=== PATIENT | female | born 1980 | race African-American/Black ===

== ENCOUNTER 2022-09-17 10:47 | Emergency (ER) | payer BC, SELFPAY ==
--- NOTE | ~2022-09-17 | US_ITS ---
EXAMINATION: US pelvic complete w TV DATE: 09/17/2022 12:56 INDICATION: Abnormal vaginal bleeding TECHNIQUE: Multiple transabdominal and endovaginal sonographic images of the pelvis were obtained. COMPARISON: None. FINDINGS: The uterus measures 9.1 x 3.8 x 4.1 cm. There is a 2.8 x 2.3 x 2.0 cm mass of the uterus wi th the appearance of an intramural fibroid. The endometrial complex measures 5 mm. The right ovary is not visualized however no right adnexal abnormality is seen. The left ovary measures 7.5 x 5.8 x 5.9 cm and contains a 6.6 cm cyst. There is normal vascular flow in the left ovary. There is no free flu id in the pelvis. IMPRESSION: 1. Uterine fibroid. 2. 6 cm cyst of the left ovary. Follow-up ultrasound in 8-12 weeks is recommended. Reviewed, dictated and finalized at location A. SCRAPER IMPRESSION: 1. Uterine fibroid. 2. 6 cm cyst of the left ovary. Follow-up ultrasound in 8-12 weeks is recommend ed.
[2022-09-17 11:16] VITALS: BP 117/68; PULSE 74; RESP 18; TEMP 36.6; O2SAT 99
[2022-09-17 11:27] VITALS: BP 113/85; PULSE 79; RESP 16; O2SAT 97
[2022-09-17 12:00] VITALS: BP 127/69; PULSE 56
[2022-09-17 12:01] VITALS: BP 117/69; BP 119/75; PULSE 59; PULSE 73
[2022-09-17 12:03] LABS: Basophils Absolute Auto 0.1 K/mm3 (0.0-0.1); Eosinophils Absolute Auto 0.3 K/mm3 (0-0.3); Eosinophils Percent Auto 4.5 % (0-4.4); Hematocrit 37.4 % (37.0-47.0); Hemoglobin 12.2 g/dL (12.0-15.0); Immature Granulocyte Absolute 0.02 K/mm3 (0.00-0.031); Immature Granulocyte Percent A 0.3 % (0-0.5); Lymphocytes Absolute Auto 2.36 K/mm3 (0.9-3.2); Lymphocytes Percent Auto 38.2 % (18.3-44.2); Mean Corpuscular HGB Conc 32.6 g/dl (32-36); Mean Corpuscular Hemoglobin 29.5 pg (26-34); Mean Corpuscular Volume 90.6 fl (80-100); Mean Platelet Volume 11.1 fl (7.4-10.4); Monocytes Absolute Auto 0.5 K/mm3 (0.1-0.6); Monocytes Percent Auto 7.5 % (2.6-8.5); Neutrophils Percent Auto 48.5 % (45.5-73.1); Platelet Count Result 285 k/mm3 (150-375); Red Blood Count 4.13 M/mm3 (4.2-5.4); Red Cell Distribution Width 13.5 % (11.5-14.5); White Blood Count 6.2 K/mm3 (4.5-10.0)
--- NOTE | 2022-09-17 13:18 | ED.FEMALEGU ---
HPI - Female Genitourinary General Chief complaint: Vaginal Bleeding Stated complaint: vaginal bleeding Time Seen by Provider: 09/17/22 11:24 Source: patient and RN notes reviewed Mode of arrival: ambulatory Limitations: no limitations History of Present Illness HPI Narrative: This is a 41 year old female with history of uterine fibroids who presents for evaluation of heavy vaginal bleeding. Patient states she has been on her menstrual cycle for 12 days and it became heavy on Sunday. Patient states today she is passing large clots and she is changing her pads every 2 hours. She denies dizziness, chest pain, sob, or weakness. She reports history of menstrual cycles that last 7-10 days but it has never been this heavy. She reports her last menstrual cycle was August 11. She had procedure in December to remove uterine fibroids and cyst. She states her packaging materials inspector is located in [place]. Related Data Allergies Allergy/AdvReac Type Severity Reaction Status Date / Time ibuprofen AdvReac Nausea and Verified 09/17/22 11:24 Vomiting Review of Systems Constitutional: Constitutional: Denies weakness Cardiovascular: Cardiovascular: Denies syncope, Denies rapid heart rate, Denies irregular heart rhythm, Denies leg edema and Denies dyspnea Respiratory: Respiratory: Denies chest congestion, Denies hemoptysis, Denies excessive phlegm production and Denies dyspnea Gastrointestinal: Gastrointestinal: Denies abdominal pain, Denies hematochezia, Denies diarrhea and Denies vomiting Genitourinary: Genitourinary: Reports abnormal vaginal bleeding, Denies hematuria and Denies dysuria Musculoskeletal: Musculoskeletal: Denies joint swelling, Denies loss of height and Denies muscle weakness Neurologic: Denies syncope, Denies focal weakness and Denies weakness PMFSH Past Medical History Medical History (Updated 09/17/22 @ 13:45 by Sara Nix MD) Uterine fibroid Social History Social History (Updated 09/17/22 @ 13:45 by Sara Nix MD) Smoking status: Never smoker Exam Const: General: no acute distress and alert Nutritional Appearance: well nourished and obese Orientation/consciousness: patient oriented x3 HENMT: Head: normal to inspection Eyes: EOM: EOMs intact bilaterally Chest: Chest palpation & inspection: normal inspection of the chest Resp: Effort & Inspection: normal respiratory effort Auscultation: clear to auscultation bilaterally Cardio: Rate: regular rate Rhythm: regular rhythm Heart sounds: no murmurs GI: GI Palp: Yes Soft to palpation, No Tenderness to palpation present (GI) and No Guarding due to palpation present (GI) Auscultation: normal bowel sounds : Speculum Exam - Vagina: vaginal bleeding Speculum Exam - Cervix: Cervical os closed Bimanual Exam- Adnexa, other: no masses Back/Spine/Pelvis: Back: no CVA tenderness Skin: General skin exam: normal color Rashes: no rashes Neuro: General: patient oriented x3, moves all extremities and CN's II-XI intact bilaterally Speech: normal speech Gait exam (Neuro): Normal gait present Psych: Appearance: grossly normal Mental Status: mental status grossly normal Affect: normal affect Attitude: cooperative Course Reevaluation(s) Reevaluation #1: PAtient states her bleeding has lessened. She will follow up with packaging materials inspector regarding her options. Date: 09/17/22 Time: 13:29 Vital Signs Vital signs: Vital Signs Temperature 97.8 F 09/17/22 11:16 Pulse Rate 74 09/17/22 11:16 Respiratory Rate 18 09/17/22 11:16 Blood Pressure 117/68 09/17/22 11:16 Pulse Oximetry 99 09/17/22 11:16 Oxygen Delivery Room Air 09/17/22 11:16 Temperature 97.8 F 09/17/22 11:16 Pulse Rate 73 09/17/22 12:01 Respiratory Rate 16 09/17/22 11:27 Blood Pressure 117/69 09/17/22 12:01 Pulse Oximetry 97 09/17/22 11:27 Oxygen Delivery Room Air 09/17/22 11:16 MDM - Female Genitourinary MDM Narrative Medical decision m
== END 2022-09-17 14:15 | disposition home or self-care (01) ==
PROVIDERS: Emergency Provider General Practice; PCP Nurse Practitioner Family
DX: N92.0 Excessive and frequent menstruation with regular cycle (principal); N83.202 Unspecified ovarian cyst, left side; D25.9 Leiomyoma of uterus, unspecified
CPT/HCPCS: 36415; 76830; 76856; 81025; 85025; 86850; 86900; 86901; 99284

== ENCOUNTER 2023-10-23 15:35 | Emergency (ER) | payer BC, SELFPAY ==
--- NOTE | ~2023-10-23 | CT_ITS ---
EXAMINATION: CT abdomen pelvis w con DATE: 10/23/2023 16:59 INDICATION: Low abdominal pain. Hematuria. TECHNIQUE: Computed tomography (CT) of the abdomen and pelvis was performed with 100 mL Omnipaque 350 intravenous contrast. Automated exposure control and iterative reconstruction technique were employe d. The dose-length product was 830.26 mGy-cm. COMPARISON: Ultrasound pelvis 09/17/2022 FINDINGS: The visualized portions of the lung bases are clear without pneumonia or pleural effusion. The heart size is normal. No pericardial effusion. The liver, gallbladder, spleen, pancreas, adrenal glands, and left kidney are normal. There are cysts in right kidney measuring up to 6 mm. There are n o dilated loops of bowel. The appendix is normal. There is a 3.2 cm cyst in left ovary. There is a 2. 7 cm uterine fibroid. There are no pathologically enlarged lymph nodes. There is no free intraperiton eal fluid. There is mild lumbar spondylosis. IMPRESSION: 1. 3.2 cm cyst in left ovary, likely a follicular cyst. 2. 2.7 cm uterine fibroid. Reviewed, dictated and finalized at location A.
--- NOTE | ~2023-10-23 | US_ITS ---
EXAMINATION: US pelvic complete w TV DATE: 10/23/2023 17:37 INDICATION: suprapubic pain, vag bleeding, hx cysts TECHNIQUE: Multiple transabdominal and endovaginal sonographic images of the pelvis were obtained. COMPARISON: CT abdomen and pelvis, same date. FINDINGS: Uterus: 7.6 x 4.8 x 6.3 cm. 2.5 cm heterogeneous myometrial lesion in the anterior uterine fundus. En dometrial complex measures 20 mm. Right Ovary: Obscured by bowel gas. Left Ovary: Obscured by bowel gas. There is no free fluid in the pelvis. IMPRESSION: 2.5 cm intramural fibroid. Endometrial thickening, consider gynecology referral for possible endometrial sampling and/or sonohys terography. Bilateral ovaries obscured by bowel gas. Reviewed, dictated and finalized at location K. IMPRESSION: 2.5 cm intramural fibroid. Endometrial thickening, consider gynecology referral for possible endometrial s ampling and/or sonohysterography. Bilateral ovaries obscured by bowel gas.
[2023-10-23 15:31] VITALS: BP 100/81; PULSE 79; RESP 29; TEMP 36.6; O2SAT 100
[2023-10-23 16:05] LABS: Basophils Absolute Auto 0.1 K/mm3 (0.0-0.1); Basophils Percent Auto 1.1 % (0.2-1.2); Eosinophils Absolute Auto 0.2 K/mm3 (0-0.3); Eosinophils Percent Auto 3.1 % (0-4.4); Hemoglobin 15.5 g/dL (12.0-15.0); Immature Granulocyte Absolute 0.09 K/mm3 (0.00-0.031); Immature Granulocyte Percent A 1.4 % (0-0.5); Lymphocytes Absolute Auto 3.62 K/mm3 (0.9-3.2); Lymphocytes Percent Auto 55.4 % (18.3-44.2); Mean Corpuscular HGB Conc 32.3 g/dl (32-36); Mean Corpuscular Hemoglobin 28.8 pg (26-34); Mean Corpuscular Volume 89.1 fl (80-100); Mean Platelet Volume 10.8 fl (7.4-10.4); Monocytes Absolute Auto 0.6 K/mm3 (0.1-0.6); Monocytes Percent Auto 8.4 % (2.6-8.5); Neutrophils Percent Auto 30.6 % (45.5-73.1); Platelet Count Result 396 k/mm3 (150-375); Red Blood Count 5.39 M/mm3 (4.2-5.4); Red Cell Distribution Width 13.2 % (11.5-14.5); White Blood Count 6.5 K/mm3 (4.5-10.0)
[2023-10-23 16:15] VITALS: PULSE 65; RESP 15; O2SAT 100
[2023-10-23 16:16] LABS: Alanine Aminotransferase 20 U/L (6-35); Albumin Level 4.4 g/dL (3.5-5.1); Alkaline Phosphatase 65 U/L (38-126); Anion Gap 7 mmol/L (8-16); Aspartate Amino Transferase 29 U/L (14-36); Bilirubin,Total 0.8 mg/dL (0.2-1.3); Blood Urea Nitrogen 10 mg/dL (7-17); Calcium 9.7 mg/dL (8.4-10.2); Carbon Dioxide 23 mmol/L (22-30); Chloride 107 mmol/L (98-107); Estimated CRCL calculation 95 ml/min; Estimated Glomerular Filt Rate > 60; Glucose 101 mg/dL (65-110); Lipase 53 U/L (23-300); Potassium 4.2 mmol/L (3.4-5.0); Sodium 137 mmol/L (137-145)
[2023-10-23 16:26] LABS: Bacteria Urine None Seen /hpf; Non Pathogenic Casts 0-2; RBC Urine >100 /hpf (0-2); Squamous Epithelial Cell Urine None Seen /hpf (Few); WBC Urine 0-5 /hpf (0-3)
[2023-10-23 16:28] LABS: Add Urine Microscopic? YES; Appearance Urine Cloudy (Clear); Bilirubin Urine Negative (Negative); Blood Urine 3+ (Negative); Color Urine Orange (Yellow); Glucose Urine UA Negative (Negative); Ketones Urine Negative (Negative); Leukocyte Esterase Ur Trace LEU/UL (Negative); Nitrate Urine Negative (Negative); Protein Urine Trace mg/dL (Negative); Specific Grav Ur 1.017 (1.001-1.035)
[2023-10-23 16:30] VITALS: PULSE 74; RESP 23; O2SAT 100
[2023-10-23] MEDS: ONDANSETRON INJ 4 MG/2 ML VIAL IV PUSH (16:31)
[2023-10-23] MEDS: SODIUM CHLORIDE 0.9% IV 1,000 ML 999 ML IV CONT (16:31)
[2023-10-23] MEDS: MORPHINE SULFATE (*CRX) 4 MG/ML INJ IV PUSH (16:31)
--- NOTE | 2023-10-23 16:31 | ED.ABDPAIN ---
HPI - Abdominal Pain General Chief Complaint: Abdominal Pain Stated Complaint: abd pain Time Seen by Provider: 10/23/23 15:46 Source: patient Mode of arrival: EMS Limitations: no limitations History of Present Illness HPI narrative: Patient is a 42-year-old female who presents the ED via EMS with report of suprapubic abdominal pain. Patient reports pain began approximately 1 hour ago. Has been intermittent since then. Denies specific aggravating or alleviating factors. Has not tried anything for the pain. Patient reports having history of similar pain in the past related to uterine fibroids and ovarian cysts, which she has had previous surgery for. She sees OBGYN at [facility] as well as a specialist in [place], [place]. Patient admits to intermittent vaginal spotting over the last 3 weeks, states she is now currently on her menstrual cycle. She denies nausea, vomiting, diarrhea, constipation, rectal bleeding, melena, hematuria, dysuria, fevers. Related Data Allergies Allergy/AdvReac Type Severity Reaction Status Date / Time ibuprofen AdvReac Nausea and Verified 10/23/23 15:46 Vomiting Review of Systems Review of Systems: CONSTITUTIONAL: Denies fever, chills, or sweats. GASTROINTESTINAL: See HPI. GENITOURINARY: See HPI. All systems reviewed & are unremarkable except as noted in HPI and below PMFSH Past Medical History Medical History Uterine fibroid Social History Social History Smoking status: Never smoker Exam Narrative: GENERAL: Mildly uncomfortable appearing, obese with BMI of 30.5, non-toxic, in no acute distress. HEAD: Normocephalic, atraumatic. RESPIRATORY: Airway patent, respirations nonlabored. Clear to auscultation bilaterally, no rales, rhonchi, wheezing. CARDIOVASCULAR: Regular rate and rhythm without murmurs, rubs, or gallops. ABDOMINAL: Soft, diffuse lower abdominal tenderness, worst throughout suprapubic region, nondistended. Normoactive BS. MUSCULOSKELETAL: Moves all extremities. No gross deformities. SKIN: Warm, dry, normal color. NEURO: A&O X3. Speech clear. PSYCHIATRIC: Mildly anxious. Normal interaction. Course Vital Signs Vital signs: Vital Signs Temperature 97.8 F 10/23/23 15:31 Pulse Rate 79 10/23/23 15:31 Respiratory Rate 29 H 10/23/23 15:31 Blood Pressure 100/81 10/23/23 15:31 Pulse Oximetry 100 10/23/23 15:31 Oxygen Delivery Room Air 10/23/23 15:31 Temperature 97.8 F 10/23/23 15:31 Pulse Rate 74 10/23/23 16:30 Respiratory Rate 23 H 10/23/23 16:30 Blood Pressure 100/81 10/23/23 15:31 Pulse Oximetry 100 10/23/23 16:30 Oxygen Delivery Room Air 10/23/23 15:31 MDM - Abdominal Pain MDM Narrative Medical decision making narrative: Patient presented to ED with report of suprapubic abdominal pain, onset 1 hour prior to arrival, also reporting intermittent vaginal spotting over the last 3 weeks. Vitals are stable upon arrival. Patient afebrile. Mildly uncomfortable appearing, but no acute distress. CBC without leukocytosis. Stable H&H. Possible hemoconcentration. CMP unremarkable. Urinalysis with lots of blood, no evidence for infection. Patient does admit to ongoing vaginal bleeding today which likely explains the blood. Ultrasound obtained and showing evidence of uterine fibroid, endometrial thickening, bilateral ovaries were obscured by bowel gas. CT abdomen pelvis obtained and showing 3.2 cm left-sided ovarian cyst, again showing uterine fibroid. No other acute intra-abdominal abnormalities. Discussed lab and imaging findings with patient and family at bedside. Patient is feeling much better with supportive therapy. Her pain is resolved after 1 dose of morphine. I discussed that while they were not able to visualize her ovaries on the ultrasound and thus confirm blood flow, I have
--- NOTE | 2023-10-23 17:26 | PC.NURSE ---
pt down to scan @1645 and back @1720
[2023-10-23 18:34] VITALS: BP 126/92; PULSE 63; RESP 17; TEMP 36.8; O2SAT 100
== END 2023-10-23 18:35 | disposition home or self-care (01) ==
PROVIDERS: Emergency Medicine; Emergency Provider Physician Assistant; PCP Nurse Practitioner Family
DX: N83.202 Unspecified ovarian cyst, left side (principal); D25.1 Intramural leiomyoma of uterus; R10.30 Lower abdominal pain, unspecified; R93.89 Abnormal findings on diagnostic imaging of other specified body structures
CPT/HCPCS: 36415; 74177; 76830; 76856; 80053; 81025; 83690; 85025; 96361; 96374; 96375; 99284; J2270; J2405; J7030; Q9967